=== PATIENT | male | born 1970 | race African-American/Black ===

== ENCOUNTER 2022-07-12 06:52 | Emergency (ER) | payer OTHER, SELFPAY ==
--- NOTE | ~2022-07-12 | CT_ITS ---
EXAMINATION: CT CHEST WITH CONTRAST CLINICAL INFORMATION: Right-sided neck swelling. COMPARISON: None available. TECHNIQUE: Multidetector volumetric CT imaging of the chest was obtained after the administration of 65 mL of Omnipaque 350 intravenous contrast without immediate adverse reactions. Axial MIP volume rendering provided. Sagittal and coronal reformatted images were obtained. This CT examination was performed using dose optimization techniques as appropriate, variously including the following: *Automated exposure control *Adjustment of mA and/or kV according to patient size (this includes techniques or standardized protocols for targeted exams where dose is matched to indication/reason for exam; i.e. extremities or head) *Use of iterative reconstruction technique DLP: 1374 mGy-cm (for CT exams of chest and neck) FINDINGS: LUNGS AND PLEURA: The trachea and central airways are normal. Lungs are well expanded. Mild paraseptal emphysema. No pulmonary nodule, mass or pleural effusion. CARDIOVASCULAR: The heart size is normal. No pericardial effusion. Pulmonary arteries and thoracic aorta are normal in caliber. CORONARY ARTERY CALCIFICATION: None detected. MEDIASTINUM AND LOWER NECK: A mass of fat attenuation along the scalene muscles and occupying the supraclavicular fossa measures approximately 5.5 x 5.8 x 7.3 cm and is partially included in the [id number] on the CT images of the chest. The mass is projecting lateral to and is interposed between the scalene muscles, and trunks of the right brachial plexus are coursing around the mass. No thick septations or nodular contrast enhancing foci within the fatty lesion. There is a mildly enlarged, multinodular thyroid goiter for which ultrasound follow-up is recommended for further characterization. No mediastinal mass. The esophagus is unremarkable. LYMPHATICS: No axillary or internal mammary lymphadenopathy. No pathologic sized mediastinal or hilar lymph nodes. UPPER ABDOMEN: Unremarkable. SKELETAL AND CHEST WALL: No chest wall mass. Thoracic vertebra have normal height and alignment. No suspicious bone lesions. CT/CT chest w IV con IMPRESSION: * A lipoma along the scalene muscles and within the supraclavicular fossa of the right neck measures approximately 5.5 x 5.8 x 7.3 cm. * Mild paraseptal emphysema. * No pulmonary nodule or lymphadenopathy.
--- NOTE | ~2022-07-12 | XR_ITS ---
EXAMINATION: XR SHOULDER, RIGHT CLINICAL INFORMATION: Right shoulder pain COMPARISON: None available. TECHNIQUE: AP external rotation, Grashey, scapular Y, and axillary views of the right shoulder. FINDINGS: There is loss of before meals and glenohumeral joint space with periarticular spurring AC joint. No visible fracture, dislocation or loose body seen. No bony erosive changes. 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 No visible acute fracture or dislocation seen.
--- NOTE | ~2022-07-12 | CT_ITS ---
EXAMINATION: CT SOFT TISSUE NECK WITH CONTRAST CLINICAL INFORMATION: Right-sided neck swelling. Lump in neck for 2 years. COMPARISON: None available. TECHNIQUE: Multidetector helical imaging was performed in the axial plane following the administration of 65 mL of Omnipaque 350 intravenous contrast. Multiple axial reformats and coronal/sagittal reconstructions were created the technologist workstation for review. This CT examination was performed using dose optimization techniques as appropriate, variously including the following: *Automated exposure control. *Adjustment of mA and/or kV according to patient size (this includes techniques or standardized protocols for targeted exams where dose is matched to indication/reason for exam; i.e. extremities or head). *Use of iterative reconstruction technique. DLP: 1374 mGy-cm FINDINGS: There is a multilobulated lipomatous lesion centered within the right-sided scalene musculature, measuring approximately 5.7 x 4.7 x 7.7. This lesion is associated with thin membranes without demonstrated soft tissue nodular component. No significant cutaneous thickening or subcutaneous inflammation. No discrete fluid collection within the deep tissues of the neck. The premaxillary, retromaxillary, pterygopalatine fossa, orbital apical, parapharyngeal, and prelaryngeal adipose tissue is maintained. Multiple hypoattenuating nodules throughout the thyroid gland, measuring up to 1.8 cm. Normal appearance of the parotid and submandibular glands. There is a 1.2 cm left level Ia lymph node. Otherwise, scattered subcentimeter lymph nodes bilaterally, none of which are pathologically enlarged or abnormally enhancing. Normal mucosal contours of the pharynx and larynx without abnormal enhancement. Normal appearance of the hyoid bone, thyroid cartilage, or cartilaginous trachea. The airways remains widely patent. No radiopaque foreign bodies. The atlantooccipital and atlantoaxial articulations remain well aligned. Straightening of the normal cervical lordosis. Moderate No evidence of acute fracture or subluxation of the cervical spine. The vertebral body heights are maintained. Moderate degenerative disc disease at C5-C6. Mild degenerative disc disease at all additional levels. No evidence of epidural collection. There is no prevertebral soft tissue swelling. Normal opacification of the cervical arterial and venous structures. The visualized portion of the skull base is without significant abnormalities. Multifocal odontogenic enamel erosions. Periapical lucencies associated with the maxillary left 2nd premolar. Moderate mucosal thickening of the visualized paranasal sinuses. Chronic appearing depressions of the left worse than right lamina papyracea. The mastoid air cells and middle ear cavities are clear. No demonstrated significant periapical odontogenic disease. CT Upper Chest: Moderate paraseptal emphysema. Mild peribronchial wall thickening. Otherwise, the visualized lung apices and upper mediastinum are within normal limits. CT/CT soft tissue neck w IV con IMPRESSION: 1. Multilobulated lipomatous lesion centered within the right-sided scalene musculature most consistent with a lipoma. No demonstrated suspicious characteristics. 2. Multiple thyroid nodules, measuring up to 1.8 cm. Recommend further characterization with thyroid ultrasound. 3. Moderate odontogenic disease. A 1.2 cm left level Ia lymph node is likely reactive in nature. No additional pathologically enlarged cervical lymphadenopathy. 4. Emphysema.
[2022-07-12 06:59] VITALS: BP 128/84; PULSE 98; RESP 16; TEMP 36.4; O2SAT 95; BMI 27.1
--- NOTE | 2022-07-12 08:16 | ED.FALL ---
HPI - Fall General Chief Complaint: Fall Stated Complaint: Fell Time Seen by Provider: 07/12/22 07:27 Source: patient and RN notes reviewed Mode of arrival: ambulatory Limitations: no limitations History of Present Illness HPI Narrative: This is a 52-year-old male who presents emergency department with complaints of right shoulder pain for the last 2 days. Patient reports that he slipped and fell while getting out of the shower 2 days ago and fell onto the ground striking his right shoulder. Patient reports that he has had pain to his right shoulder especially when he tries to move it. He reports that he has had decreased range of motion secondary to pain. Patient denies hitting his head or LOC during this fall. Denies history of right shoulder injuries in the past. Denies taking any medications to treat his pain. Patient also reports that he has had right-sided neck swelling for the last several months, however this area has been increasing in size over the last couple weeks. He has been followed by his primary care for in the symptoms however has not had this area imaged in his concerns his cancer. He denies any difficulty swallowing or breathing. No other complaints or concerns at this time. MD complaint: fall Fall from: standing Fall witnessed: no Place fall occurred: home Loss of consciousness: none Prolonged down time: no Symptoms prior to fall: none Context: tripped/slipped Location of injury - extremities: right: shoulder Quality: stabbing and aching Associated symptoms (after fall): denies Related Data Previous Rx's Medication Instructions Recorded ibuprofen 600 mg tablet 600 mg PO Q6H PRN pain #45 tabs 07/12/22 Allergies Allergy/AdvReac Type Severity Reaction Status Date / Time No Known Allergies Allergy Verified 07/12/22 07:59 Review of Systems Review of Systems: Constitutional: No Weight loss, No Fever, No Chills, No Night Sweats, No Fatigue, No Malaise ENT/Mouth: No Hearing loss, No Ear Pain, No Nasal Congestion, No Sinus Pain, No Hoarseness, No sore throat, No Rhinorrhea, No Swallowing Difficulty Eyes: No Eye Pain, No Swelling, No Redness, No Foreign Body, No Discharge, No Vision Changes Cardiovascular: No Chest Pain, No SOB, No Dyspnea on Exertion, No Orthopnea, No Edema, No Palpitations Respiratory: No Cough, No Sputum, No Wheezing, No Smoke Exposure, No Dyspnea Gastrointestinal: No Nausea, No Vomiting, No Diarrhea, No Constipation, No Abdominal pain, No Hematochezia, No Melena Genitourinary: No irregular bleeding, No Dysuria, No Urinary Frequency, No Hematuria, No Urinary Incontinence/retention, No Urgency, No Flank Pain, No Urinary Flow Changes, No Hesitancy Musculoskeletal: + joint pain, No Myalgias, No Joint Swelling Skin: No Skin Lesions, No rash Neuro: No Weakness, No Numbness, No Paresthesias, No Loss of Consciousness, No Dizziness, No Headache Psych: No Anxiety/Panic, No Depression, No SI/HI/AH/VH, No Social Issues, Heme/Lymph: No Bruising, No Bleeding,No Lymphadenopathy Endocrine: No Polyuria, No Polydipsia, No Temperature Intolerance Yes all other systems are reviewed and are negative Constitutional: Constitutional: Reports as per [facility] Past Medical History Attestation statement: The following information was validated with the patient. Social History Social History Alcohol intake: never Smoked in Last 30 Days: No Use of substances other than those prescribed or required for medical reasons: No Advance Directives: Yes Advance Directives Information Provided: Yes Advance Directives on File: No Physical Exam Vital Signs: Vital Signs: Last Vital Signs Temp 97.9 F 07/12/22 10:46 Pulse 65 07/12/22 10:46 Resp 16 07/12/22 10:46 BP 140/77 H 07/12/22 10:46 Pulse Ox 97 07/12/22 10:46 O2 Del Method Room Air 07/12/22 10:46 BMI result Body Mass Index 27.1 Const: General: cooperative, comfortable and no acute distress Orientation/consciousness: patient oriented x3 Limitations: no limitations HEENT: Head: Yes normal to inspection, Yes normocephalic and Yes atraumatic Ears: hearing grossly normal bilaterally General nose exam: Normal external nose present Face and sinus: Yes normal facial exam Mouth: Normal oral and palatal mucosa present, oropharynx normal, moist mucous membranes, no audible dysphonia and no drooling Throat: Yes posterior oropharynx normal Eyes: General: appearance normal, both eyes and all related structures Eyelids: Yes eyelids normal Conjunctivae: conjunctivae normal Sclerae: sclerae normal Pupils: Equal, round and reactive pupils present EOM: EOMs intact bilaterally Neck: Other: Right side of neck with obvious soft tissue swelling, no overlying erythema increased warmth. No discrete mass palpated, no lymphadenopathy and axilla. Mild tenderness to palpation to this region. Neck: Yes full ROM and Yes no lymphadenopathy Lymphatic: no lymphadenopathy noted Chest: Chest palpation & inspection: normal inspection of the chest Resp: Effort & Inspection: normal respiratory effort and able to speak in complete sentences Auscultation: clear to auscultation bilaterally, no crackles, no rales, no rhonchi and no wheezes Cardio: Rate: regular rate Rhythm: regular rhythm Heart sounds: S1 normal heart sound present and S2 normal heart sound present GI: Inspection: Yes normal to inspection Skin: General skin exam: no rashes or lesions noted Trauma: no lacerations or abrasions Wounds: no wounds Neuro: General: patient oriented x3 and moves all extremities Cranial nerves: Yes Equal, round and reactive pupils present Extrem: Other: Right shoulder normal to inspection, mild tenderness to palpation over the right bicipital groove. No bony step-off or deformities. Limited flexion of the shoulder to approximately 80? forward, and abduction to about 50?. Distal sensation circulation intact. Good section leader screen printing strength section leader screen printing strength, positive empty can test. Unable to perform lift-off test. General: Yes normal to inspection Right upper extremity: normal to inspection Left upper extremity: normal to inspection Right lower extremity: normal to inspection Left lower extremity: normal to inspection Course Reevaluation(s) Reevaluation #1: Patient's right shoulder revealing degenerative changes, patient placed in a shoulder immobilizer and given referral to follow up with ana montero. CT neck and chest revealing large lipoma, discussed case with attending surgeon, Dr. Granado, who suggest follow-up with ENT/Head, Neck surgery given size of mass. Thyroid nodules also seen on CT, advised patient to follow-up with his primary care physician for further management. Also discussed lymph node changes due to dentition, advised to follow-up with his status. Patient given Physical copies of imaging help facilitate follow-up. Patient understands and agrees with plan. Patient stable for discharge. Medications Administered Discontinued Medications Generic Name Dose Route Start Last Admin Trade Name Freq PRN Reason Stop Dose Admin Iohexol 65 ml 07/12/22 11:41 07/12/22 11:41 Iohexol 350 Mg/Ml 75 Ml Infus..Btl IV 07/12/22 11:42 65 ml ONCE ONE Administration Medical Decision Making Medical Decision Making [facility] Narrative: 52-year-old male presenting to the emergency [place] or pains post fall which occurred 2 days ago. On examination, vital signs are stable. Patient has tenderness palpation over the right upper with limited range of motion of the shoulder secondary to pain. Patient also has a right sided back swelling which has been present over the last several months. Reporting some night sweats at times. No recent weight gain or weight loss appear otherwise feeling well, able to swallow without difficulty denies difficulty for the. Patient was seen by his primary care physician for this however was not given any follow-up and is concerned because area it is increasing in size. Denies ever having this region image. Plan: Right shoulder x-ray obtained. CT neck and chest with IV contrast or pleural Differential Diagnosis Differential Diagnoses: The differential diagnosis associated with the presentation includes Right shoulder dislocation, fracture, strain, sprain, ligamentous injury Admission/Observation Consideration of admission/observation: Escalation of care including admission/observation considered Lab Data [facility] Lab Attestation statement: I reviewed the patient's lab results. 07/12/22 09:54 07/12/22 10:41 Labs: Lab Results 07/12/22 07/12/22 07/12/22 Range/Units 09:54 09:54 10:41 WBC 5.9 (4.8-10.8) X10*3/uL RBC 4.29 L (4.60-5.80) X10*6/uL Hgb 12.9 L (14.0-18.0) g/dl Hct 40.0 L (42.0-52.0) % MCV 93.2 (80.0-98.0) fL MCH 30.1 (27.0-33.0) pg MCHC 32.3 (31.0-36.0) g/dl RDW 13.8 (11.0-16.0) % Plt Count 313 (160-400) X10*3/uL MPV 10.3 (9.4-12.4) fL Immature Gran % (Auto) 0.3 (0.0-0.4) % Neut % (Auto) 61.5 (45-73) % Lymph % (Auto) 23.6 (20-40) % [place] % (Auto) 9.7 (2-11) % Eos % (Auto) 3.9 (0-4) % Baso % (Auto) 1.0 (0-2) % Lymph # (Auto) 1.4 (1.2-4.9) X10*3/uL [place] # (Auto) 0.6 (0.1-1.2) X10*3/uL Eos # (Auto) 0.2 (0.0-0.4) X10*3/uL Baso # (Auto) 0.1 (0.0-0.2) X10*3/uL Abs Immat Gran (auto) 0.02 (0.00-0.03) X10*3/uL Absolute Neuts (auto) 3.6 (2.0-8.3) x10*3/uL Absolute Nucleated RBC 0.000 (0.0-0.012) X10*3/uL Nucleated RBC % (auto) 0.0 (0.0-0.2) /100WBC ESR 44 H (0-15) MM/HR Sodium 140 (135-145) mmol/L Potassium 4.8 (3.3-5.1) mmol/L Chloride 104 (96-108) mmol/L Carbon Dioxide 29 (22-29) mmol/L Anion Gap 12 (12-20) BUN 10 (9-16) mg/dL Creatinine 0.84 (0.5-1.4) mg/dL Estim Creat Clear Calc 110.3 Estimated GFR > 60 Random Glucose 103 (60-115) mg/dL Calcium 10.2 (8.4-10.2) mg/dL Magnesium 1.8 (1.6-2.6) mg/dL Total Bilirubin 0.2 (0.0-1.0) mg/dL Direct Bilirubin < 0.2 (0.0-0.5) mg/dL AST 19 (5-37) U/L ALT 13 (0-40) U/L Alkaline Phosphatase 45 (39-117) U/L C-Reactive Protein 9.10 H (< or = 0.50) mg/dL Total Protein 7.5 (6.5-8.0) g/dL Albumin 3.9 (3.5-5.0) g/dL Lipase 28 (8-78) U/L Radiology Impression Discussion of test interpretation with radiology: I have reviewed the radiologist's reading. Radiologist Impression: FINDINGS: There is a multilobulated lipomatous lesion centered within the right-sided scalene musculature, measuring approximately 5.7 x 4.7 x 7.7. This lesion is associated with thin membranes without demonstrated soft tissue nodular component. No significant cutaneous thickening or subcutaneous inflammation. No discrete fluid collection within the deep tissues of the neck. The premaxillary, retromaxillary, pterygopalatine fossa, orbital apical, parapharyngeal, and prelaryngeal adipose tissue is maintained. Multiple hypoattenuating nodules throughout the thyroid gland, measuring up to 1.8 cm. Normal appearance of the parotid and submandibular glands. There is a 1.2 cm left level Ia lymph node. Otherwise, scattered subcentimeter lymph nodes bilaterally, none of which are pathologically enlarged or abnormally enhancing. Normal mucosal contours of the pharynx and larynx without abnormal enhancement. Normal appearance of the hyoid bone, thyroid cartilage, or cartilaginous trachea. The airways remains widely patent. No radiopaque foreign bodies. The atlantooccipital and atlantoaxial articulations remain well aligned. Straightening of the normal cervical lordosis. Moderate No evidence of acute fracture or subluxation of the cervical spine. The vertebral body heights are maintained. Moderate degenerative disc disease at C5-C6. Mild degenerative disc disease at all additional levels. No evidence of epidural collection. There is no prevertebral soft tissue swelling. Normal opacification of the cervical arterial and venous structures. The visualized portion of the skull base is without significant abnormalities. Multifocal odontogenic enamel erosions. Periapical lucencies associated with the maxillary left 2nd premolar. Moderate mucosal thickening of the visualized paranasal sinuses. Chronic appearing depressions of the left worse than right lamina papyracea. The mastoid air cells and middle ear cavities are clear. No demonstrated significant periapical odontogenic disease. CT Upper Chest: Moderate paraseptal emphysema. Mild peribronchial wall thickening. Otherwise, the visualized lung apices and upper mediastinum are within normal limits. CT/CT soft tissue neck w IV con IMPRESSION: 1.? Multilobulated lipomatous lesion centered within the right-sided scalene musculature most consistent with a lipoma. No demonstrated suspicious characteristics. 2.? Multiple thyroid nodules, measuring up to 1.8 cm. Recommend further characterization with thyroid ultrasound. 3.? Moderate odontogenic disease. A 1.2 cm left level Ia lymph node is likely reactive in nature. No additional pathologically enlarged cervical lymphadenopathy. 4.? Emphysema. ? Dictated By: Osmin Serrano DO Signed By: <Electronically signed by Osmin Serrano DO in [place]> EXAMINATION: CT CHEST WITH CONTRAST CLINICAL INFORMATION: Right-sided neck swelling. COMPARISON: None available. TECHNIQUE: Multidetector volumetric CT imaging of the chest was obtained after the administration of 65 mL of Omnipaque 350 intravenous contrast without immediate adverse reactions. Axial MIP volume rendering provided. Sagittal and coronal reformatted images were obtained. This CT examination was performed using dose optimization techniques as appropriate, variously including the following: *Automated exposure control *Adjustment of mA and/or kV according to patient size (this includes techniques or standardized protocols for targeted exams where dose is matched to indication/reason for exam; i.e. extremities or head) *Use of iterative reconstruction technique DLP: 1374 mGy-cm (for CT exams of chest and neck) FINDINGS: LUNGS AND PLEURA: The trachea and central airways are normal. Lungs are well expanded. Mild paraseptal emphysema. No pulmonary nodule, mass or pleural effusion. CARDIOVASCULAR: The heart size is normal. No pericardial effusion. Pulmonary arteries and thoracic aorta are normal in caliber. CORONARY ARTERY CALCIFICATION: None detected. MEDIASTINUM AND LOWER NECK: A mass of fat attenuation along the scalene muscles and occupying the supraclavicular fossa measures approximately 5.5 x 5.8 x 7.3 cm and is partially included in the [id number] on the CT images of the chest. The mass is projecting lateral to and is interposed between the scalene muscles, and trunks of the right brachial plexus are coursing around the mass. No thick septations or nodular contrast enhancing foci within the fatty lesion. There is a mildly enlarged, multinodular thyroid goiter for which ultrasound follow-up is recommended for further characterization. No mediastinal mass. The esophagus is unremarkable. LYMPHATICS: No axillary or internal mammary lymphadenopathy. No pathologic sized mediastinal or hilar lymph nodes. UPPER ABDOMEN: Unremarkable. SKELETAL AND CHEST WALL: No chest wall mass. Thoracic vertebra have normal height and alignment. No suspicious bone lesions. CT/CT chest w IV con IMPRESSION: *? A lipoma along the scalene muscles and within the supraclavicular fossa of the right neck measures approximately 5.5 x 5.8 x 7.3 cm. *? Mild paraseptal emphysema. *? No pulmonary nodule or lymphadenopathy. Dictated By: Sonido Thomas MD Signed By: <Electronically signed by Sonido Thomas MD in OV> 07/12/22 1228 EXAMINATION: XR SHOULDER, RIGHT CLINICAL INFORMATION: Right shoulder pain? COMPARISON: None available.? TECHNIQUE: AP external rotation, Grashey, scapular Y, and axillary views of the right shoulder. FINDINGS: There is loss of before meals and glenohumeral joint space with periarticular spurring AC joint. No visible fracture, dislocation or loose body seen. No bony erosive changes. 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 No visible acute fracture or dislocation seen. ? Dictated By: Darrin Yousif MD Signed By: <Electronically signed by Darrin Yousif MD in [place]> 07/12/22 0841 External Record Review External record reviewed: Inpatient record, Office record, Outpatient record, Prior outpatient labs, Prior outpatient radiology, Primary care record and Outside ED record Discharge Plan Discharge Clinical Impression: Lipoma of neck, Acute pain of right shoulder Patient Disposition: Home, Self-Care Instructions: Shoulder Pain (ED), Soft Tissue Mass (ED) Additional Instructions: Your shoulder x-rays performed today showed degenerative arthritic changes of the right AC joint and gelnohumeral joint. No broken bones were seen today. Please wear a shoulder sling for comfort. Do not wear this 07/09 as this can cause your shoulder pain to worsen. Gentle massage and gentle motion will help with pain. Follow-up with [facility] for further management of your symptoms. Take ibuprofen as needed for your pain. Your soft tissue neck CT showed a multilobulated lipmatous lesion within the right-sided scalene musculature, consistent with a lipoma. Please follow-up with referred specialists for removal and follow-up. Call tomorrow for an appointment. Your CT also showed multiple thyroid nodules measuring up to 1.8 cm. Please follow-up with your primary care physician for further management. If any new or worsening symptoms occur please return for re-evaluation. Ear Nose & Th[facility]at, [facility] [address], [facility] Prescriptions: New ibuprofen 600 mg tablet 600 mg PO Q6H PRN (Reason: pain) Qty: 45 0RF Referrals: [facility] [Provider Group] Chance Ferrer [Physician] - Interventions: ED Discharge Assessment Last Done: 07/12/22 13:50 Discharge Date/Time: 07/12/22 13:50
[2022-07-12 08:37] VITALS: BP 131/75; PULSE 75; RESP 16; TEMP 36.8
[2022-07-12 10:15] LABS: MANUAL DIFF FLAG NO
[2022-07-12 10:17] LABS: Basophils Absolute Auto 0.1 X10*3/uL (0.0-0.2); Eosinophils Absolute Auto 0.2 X10*3/uL (0.0-0.4); Eosinophils Percent Auto 3.9 % (0-4); Hemoglobin 12.9 g/dl (14.0-18.0); Imm Gran Abs Auto 0.02 X10*3/uL (0.00-0.03); Imm Gran Pct Auto 0.3 % (0.0-0.4); Lymphocytes Absolute Auto 1.4 X10*3/uL (1.2-4.9); Lymphocytes Percent Auto 23.6 % (20-40); Mean Corpuscular HGB Conc 32.3 g/dl (31.0-36.0); Mean Corpuscular Hemoglobin 30.1 pg (27.0-33.0); Mean Corpuscular Volume 93.2 fL (80.0-98.0); Mean Platelet Volume 10.3 fL (9.4-12.4); Monocytes Absolute Auto 0.6 X10*3/uL (0.1-1.2); Monocytes Percent Auto 9.7 % (2-11); Neutrophils Absolute Auto 3.6 x10*3/uL (2.0-8.3); Neutrophils Percent Auto 61.5 % (45-73); Platelet Count 313 X10*3/uL (160-400); Red Blood Count 4.29 X10*6/uL (4.60-5.80); Red Cell Distribution Width 13.8 % (11.0-16.0); White Blood Count 5.9 X10*3/uL (4.8-10.8)
[2022-07-12 10:46] VITALS: BP 140/77; PULSE 65; RESP 16; TEMP 36.6; O2SAT 97
[2022-07-12 11:04] LABS: Alanine Aminotransferase 13 U/L (0-40); Albumin Level 3.9 g/dL (3.5-5.0); Alkaline Phosphatase 45 U/L (39-117); Anion Gap 12 (12-20); Aspartate Amino Transferase 19 U/L (5-37); Bilirubin Direct < 0.2 mg/dL (0.0-0.5); Bilirubin Total 0.2 mg/dL (0.0-1.0); Blood Urea Nitrogen 10 mg/dL (9-16); Calcium 10.2 mg/dL (8.4-10.2); Carbon Dioxide 29 mmol/L (22-29); Chloride 104 mmol/L (96-108); Creatinine Clr Calc Pharmacy 110.3; Estimated Glomerular Filt Rate > 60; Glucose Random 103 mg/dL (60-115); Lipase 28 U/L (8-78); Magnesium 1.8 mg/dL (1.6-2.6); Potassium 4.8 mmol/L (3.3-5.1); Sodium 140 mmol/L (135-145); Total Protein 7.5 g/dL (6.5-8.0)
[2022-07-12 11:18] LABS: Erythrocyte Sedimentation Rate 44 MM/HR (0-15)
[2022-07-12] MEDS: iohexoL 350 MG/ML 75 ML INFUS..BTL 65 ML IV (11:41)
== END 2022-07-12 13:50 | disposition home or self-care (01) ==
PROVIDERS: Physician Assistant Medical; Emergency Provider Internal Medicine
DX: D17.0 Benign lipomatous neoplasm of skin and subcutaneous tissue of head, face and neck (principal); M25.511 Pain in right shoulder; Z79.899 Other long term (current) drug therapy
CPT/HCPCS: 36415; 70491; 71260; 73030; 80048; 80076; 83690; 83735; 85025; 85652; 86140; 99284; Q9967

== ENCOUNTER → 2022-08-24 08:26 | Outpatient (BNVA) | payer OTHER, SELFPAY | PROVIDERS: Visit Provider Physician Assistant ==